=== PATIENT | male | born 1990 | race American Indian/Alaskan Native ===

== ENCOUNTER 2020-04-19 04:34 | Emergency (ER) | payer OTHER ==
[2020-04-19] MEDS ORDERED: NEOMY 3.5 MG/BACIT 400 UNITS/POLY B 5000 UNITS/GM OINT PACKET TP STA (04:54)
--- NOTE | 2020-04-19 05:00 | Emergency Department Report ---
ED Lower Extremity HPI - General Stated Complaint: LT ANKLE PAIN Time Seen by Provider: 04/19/20 04:54 - History of Present Illness Initial Comments: 29-year-old -[place] male was at a work when a pallet forklifts ran into his left leg striking him on the ankle causing a break in skin and swelling to the lateral malleoli region and significant pain with difficulty ambulating he also sustained some discomfort and trauma to the top of the right foot which hurt as well. Reports no numbness, no tingling, no fever, chills, sweats. No chest pain or palpitations. MD Complaint: ankle injury, foot injury -: Gradual Injury: Ankle: Left, Foot: Left Type of Injury: blunt Severity: mild Improves With: nothing Worsens With: nothing Associated Symptoms: unable to bear weight - Related Data Previous Rx's Medication Instructions Recorded Last Taken Type Acetaminophen/Codeine [Tylenol 1 tab PO Q6H PRN #14 tab 04/19/20 Unknown Rx /Codeine # 3 tab] Clindamycin [Clindamycin CAP] 150 mg PO Q8HR #21 capsule 04/19/20 Unknown Rx Allergies Allergy/AdvReac Type Severity Reaction Status Date / Time No Known Allergies Allergy Unverified 04/19/20 05:00 ED Review of Systems ROS: Stated complaint: LT ANKLE PAIN Other details as noted in HPI Comment: All other systems reviewed and negative ED Past Medical Hx - Medications Home Medications: Home Medications Medication Instructions Recorded Confirmed Last Taken Type Acetaminophen/Codeine [Tylenol 1 tab PO Q6H PRN #14 tab 04/19/20 Unknown Rx /Codeine # 3 tab] Clindamycin [Clindamycin CAP] 150 mg PO Q8HR #21 capsule 04/19/20 Unknown Rx ED Physical Exam - General General appearance: alert, in no apparent distress - Head Head exam: Present: atraumatic, normocephalic - Eye Eye exam: Present: normal appearance - ENT ENT exam: Present: mucous membranes moist - Neck Neck exam: Present: normal inspection - Respiratory Respiratory exam: Present: normal lung sounds bilaterally. Absent: respiratory distress - Cardiovascular Cardiovascular Exam: Present: regular rate, normal rhythm. Absent: systolic murmur, diastolic murmur, rubs, gallop - GI/Abdominal GI/Abdominal exam: Present: soft, normal bowel sounds - Rectal Rectal exam: Present: deferred - Extremities Exam Extremities exam: Present: normal inspection, tenderness - Expanded Lower Extremity Exam Left Ankle exam: Present: tenderness, swelling, abrasion (Just below the lateral malleoli region. Swelling to the region no ecchymosis noted.) Foot/Toe exam: Absent: foreign body, calcaneal tenderness, tenderness at base of 5th metatarsal - Back Exam Back exam: Present: normal inspection - Neurological Exam Neurological exam: Present: alert, oriented X3 - Psychiatric Psychiatric exam: Present: normal affect, normal mood - Skin Skin exam: Present: warm, dry, intact, normal color. Absent: rash ED Course Vital Signs 04/19/20 04:52 Temperature 97.9 F Pulse Rate 64 Respiratory 18 Rate Blood Pressure 114/52 O2 Sat by Pulse 100 Oximetry - Orthopedic Splinting/Casting Injury #2 Side: left Lower Extremity Injury Location: ankle, foot Lower Extremity Immobilizer: posterior splint Other Orthopedic Equipment: crutches ED Lower Extremity MDM - Radiology Data Radiology results: report reviewed [address] [address] XRay Report Signed Patient: SONG COLEMAN MR#: [id number] : 1990 Acct:[id number] Age/Sex: 29 / M ADM Date: 04/19/20 Loc: ED Attending Dr: Ordering Physician: ELAYNE COPE Date of Service: 04/19/20 Procedure(s): XR foot 3+V RT Accession Number(s): [id number] cc: ELAYNE COPE Fluoro Time In Minutes: RIGHT FOOT 3 VIEW(S) INDICATION / CLINICAL INFORMATION: pain and swelling to dorsum COMPARISON: None available. FINDINGS: BONES / JOINT(S): No acute fracture or subluxation. Mild degenerative arthrosis first MTP joint SOFT TISSUES: No significant abnormality. ADDITIONAL FINDINGS: None. Signer Name: Kiel Banres MD Signed: 04/19/2020 5:50 AM Workstation Name: [id number] Transcribed By: TL Dictated By: Kiel Barnes MD Electronically Authenticated By: Kiel Barnes MD Signed Date/Time: 04/19/2050 DD/ TD/TT: [address] [place] [address] XRay Report Signed Patient: SONG COLEMAN MR#: [id number] : 1990 Acct:[id number] Age/Sex: 29 / M ADM Date: 04/19/20 Loc: ED Attending Dr: Ordering Physician: ELAYNE COPE Date of Service: 04/19/20 Procedure(s): XR ankle 3+V LT Accession Number(s): [id number] cc: ELAYNE COPE Fluoro Time In Minutes: LEFT ANKLE 3 VIEW(S) INDICATION / CLINICAL INFORMATION: pain and swelling COMPARISON: None available. FINDINGS: BONES / JOINT(S): Acute mildly displaced fracture of radial malleolus and non displaced fracture of lateral malleolus No significant arthritis. SOFT TISSUES: Moderate lateral ankle soft tissue swelling ADDITIONAL FINDINGS: None. Signer Name: Kiel Barnes MD Signed: 04/19/2020 5:51 AM Workstation Name: [id number] Transcribed By: TL Dictated By: Kiel Barnes MD Electronically Authenticated By: Kiel Barnes MD Signed Date/Time: 04/19/20 0551 DD/ 0550 Critical care attestation.: If time is entered above; I have spent that time in minutes in the direct care of this critically ill patient, excluding procedure time. ED Disposition Clinical Impression: Displaced bimalleolar fracture of left ankle Disposition: DC-01 TO HOME OR SELFCARE Is pt being admited?: No Does the pt Need Aspirin: No Condition: Stable Instructions: Ankle Fracture Rehab-SportsMed, Complex Ankle Fracture, Cast or Splint Care, Adult Prescriptions: Clindamycin [Clindamycin CAP] 150 mg PO Q8HR #21 capsule Acetaminophen/Codeine [Tylenol /Codeine # 3 tab] 1 tab PO Q6H PRN #14 tab PRN Reason: Pain , Severe (7-10) Referrals: PRIMARY CARE, [Primary Care Provider] - 3-5 Days ESPERANZA HARTMANN MD [Staff Physician] - 3-5 Days
[2020-04-19] MEDS ORDERED: MORPHINE 4 MG/1 ML INJ IV ONE (05:34)
[2020-04-19] MEDS ORDERED: ceFAZolin/NS 1 GM/50 ML 1 GM/50 ML BAG IV STA (05:38)
[2020-04-19] MEDS ORDERED: ONDANSETRON 4 MG/2 ML INJ IV STA (05:38)
--- NOTE | 2020-04-19 05:54 | XRay Report ---
RIGHT FOOT 3 VIEW(S) INDICATION / CLINICAL INFORMATION: pain and swelling to dorsum COMPARISON: None available. FINDINGS: BONES / JOINT(S): No acute fracture or subluxation. Mild degenerative arthrosis first MTP joint SOFT TISSUES: No significant abnormality. ADDITIONAL FINDINGS: None. Signer Name: Kiel Barnes MD Signed: 04/19/2020 5:50 AM Workstation Name: [id number]
--- NOTE | 2020-04-19 05:55 | XRay Report ---
LEFT ANKLE 3 VIEW(S) INDICATION / CLINICAL INFORMATION: pain and swelling COMPARISON: None available. FINDINGS: BONES / JOINT(S): Acute mildly displaced fracture of radial malleolus and nondisplaced fracture of la teral malleolus No significant arthritis. SOFT TISSUES: Moderate lateral ankle soft tissue swelling ADDITIONAL FINDINGS: None. Signer Name: Kiel Barnes MD Signed: 04/19/2020 5:51 AM Workstation Name: [id number]
[2020-04-19 06:29] VITALS: BP 108/53
== END 2020-04-19 06:44 | disposition home or self-care (01) ==
LOC: ED 04:34
DX: S82.842A Displaced bimalleolar fracture of left lower leg, initial encounter for closed fracture (principal); Z79.899 Other long term (current) drug therapy; X58.XXXA Exposure to other specified factors, initial encounter; Y93.89 Activity, other specified; Y92.89 Other specified places as the place of occurrence of the external cause; Y99.8 Other external cause status
CPT/HCPCS: 29515; 73610; 73630; 96365; 96375; 99284; A6250; J0690; J2270; J2405